=== PATIENT | male | born 1970 | race Caucasian/White ===

== ENCOUNTER → 2018-07-09 17:54 | Outpatient (CLI) | payer OTHER, SELFPAY ==
[2018-07-09 18:38] LABS: Amphetamine/Metha Screen,Urine Negative ng/mL (<1000); Barbiturates Screen,Urine Negative ng/mL (<200); Benzodiazepines Screen,Urine Negative ng/mL (<200); Cannabinoid Screen,Urine Positive ng/mL (<50); Cocaine Screen,Urine Negative ng/mL (<300); Methadone Screen,Urine Negative ng/mL (<300); Opiate Screen,Urine Positive ng/mL (<300); Phencyclidine Screen,Urine Negative ng/mL (<25)
[2018-07-09 18:51] LABS: Basophils # 0.1 K/mm3 (0-0.2); Eosinophils # 0.2 K/mm3 (0.0-0.4); Eosinophils % 1.7 % (0.1-12.0); Hematocrit 48.7 % (42.0-52.0); Lymphocytes # 3.3 K/mm3 (0.7-4.5); Lymphocytes % 34.8 % (10-50); Mean Corpuscular HGB Conc 34.8 g/dL (31.8-35.4); Mean Corpuscular Hemoglobin 32.9 pg (27.0-31.2); Mean Corpuscular Volume 94.7 fl (80-94); Mean Platelet Volume 8.1 fl (7.4-10.4); Monocytes # 0.4 K/mm3 (0.1-1.0); Monocytes % 4.8 % (1.7-9.3); Neutrophils # 5.4 K/mm3 (1.8-7.8); Neutrophils % 57.7 % (37.0-80.0); Platelet Count 160 K/mm3 (142-424); Red Blood Count 5.15 M/mm3 (4.60-6.20); Red Cell Distribution Width 13.4 % (11.5-17.5); White Blood Count 9.3 K/mm3 (4.8-10.8)
[2018-07-09 19:21] LABS: Alanine Aminotransferase 56 U/L (12-78); Albumin Level 4.5 gm/dL (3.4-5.0); Alkaline Phosphatase 119 U/L (46-116); Anion Gap 16.3 mEq/L (5-15); Aspartate Amino Transferase 31 U/L (15-37); Bilirubin,Total 0.8 mg/dL (0.2-1.0); Blood Urea Nitrogen 7 mg/dL (7-18); Calcium 9.6 mg/dL (8.5-10.1); Carbon Dioxide 27 mmol/L (21.0-32.0); Chloride 100 mmol/L (98-107); Chol/HDL Ratio 4.5 (1-3.5); Cholesterol 216 mg/dL (140-200); Creatinine,Serum 0.95 mg/dL (0.70-1.30); Estimated Glomerular Filt Rate 84 ml/min (>60); GFR (African American) 102 ML/MIN (>60); Globulin 4.3 gm/dl (1.3-3.2); Glucose 112 mg/dL (74-106); HDL Cholesterol 48 mg/dL (27-67); LDL Cholesterol 149 mg/dL (0-130); Potassium 4.3 mmoL/L (3.5-5.1); Sodium 139 mmol/L (136-145); T4 (Thyroxine) 10.7 ug/dl (4.7-13.3); Thyroid Stimulating Hormone 1.51 uIU/ml (0.358-3.740); Total Protein,Serum 8.8 gm/dL (6.4-8.2); Triglycerides 95 mg/dL (30-200); VLDL Cholesterol 19 mg/dL (0-40)
[2018-07-12 16:20] LABS: Vitamin D 25 Hydroxy 13.2 ng/mL (30.0-100.0)
[2018-07-12 22:12] LABS: Hep A Ab, IgM Negative (Negative); Hepatitis B Core Antibody IgM Negative (Negative); Hepatitis B Surface Antigen Negative (Negative)
[2018-07-13 06:08] LABS: Hepatitis C Antibody >11.0 s/co ratio (0.0-0.9)
== END ==
PROVIDERS: Visit Provider Nurse Practitioner Family
DX: M54.5 Low back pain (principal)
CPT/HCPCS: 80053; 80061; 80074; 80305; 82652; 84436; 84443; 85025

== ENCOUNTER → 2018-08-09 10:58 | Outpatient (POV) | payer OTHER, SELFPAY ==
[2018-08-09 11:20] VITALS: BP 175/108; PULSE 102; RESP 18; TEMP 36.8; O2SAT 96; BMI 24.3
--- NOTE | 2018-08-09 11:50 | [facility]H.PMCON ---
Assessment and Plan (1) Burst fracture of lumbar vertebra Current visit: Yes Status: Chronic Category: Medical Code(s): S32.001A - Stable burst fracture of unspecified lumbar vertebra, initial encounter for closed fracture (2) Sacroiliitis Current visit: Yes Status: Chronic Category: Medical Code(s): M46.1 - Sacroiliitis, not elsewhere classified - Assessment and plan all Dx Assessment and Plan for all problems:: I will give him information on SI joint injections. The person with the patient got continually agitated we were unable to continue with our appointment. I discussed with him if he is interested in SI joint injections we will schedule this. This note was dictated using voice recognition software and may contain errors or omissions HPI - Data of Consult Consult date: 08/09/18 Requesting Physician: Trina Hidalgo APRN Primary Care Provider: Britney Watson - Consult Narrative Reason for consult: Back pain History of present illness: Mr. Valente is a 48 year old male who presents today for consultation in regards to his back pain. Patient rates his pain about 8 out of 10. Patient has not had any injections. Patient has been on Percocet in the past however he is also been on Suboxone. Patient states he has had a history of abuse with prescription drugs. Patient is not a narcotic candidate. I discussed SI joint injections and epidural injections. The person with the patient is very vocal in her dislike of me suggesting things other than pain medication. CC: Trina Hidalgo APRN [facility] History I have reviewed the patient's past medical history: Yes Other Medical History: Reports: Other Laterality Cases: Bilateral: Tonsillectomy Other Surgeries: Yes: Appendectomy, Other (previous back surgeries) Amputation: No Fractures: Yes - *Social History Educational Level: Completed GED/General Educational Development Smoking Status: Current every day smoker Tobacco Type: cigarettes # Packs/Day (cigarettes): 1 Alcohol Intake: current Alcohol Intake Frequency:: other Substance Use Type: prescription drug Occupational Status: employed Housing: house - Psychiatric History Expresses thoughts of harming self/others: None Suicide Plan Description: No Plan *Family Hx:: No significant family history Review of Systems - Review of Systems ROS General: no recent weight change, no fever, no sleep disturbances Respiratory: no cough, no shortness of air, no recurring pulmonary infections Cardiovascular/Peripheral Vascular: No chest pain, No palpitations, no edema, no shortness of breath. Gastrointestinal: no incontinence, normal bowel movements reported Genitourinary: no incontinence Musculoskeletal: Back pain, SI joint pain Psychiatric: normal mood/ affect Neurological: [denies weakness in extremities], [denies balance issues] Meds Allergies Allergy/AdvReac Type Severity Reaction Status Date / Time No Known Allergies Allergy Verified 07/09/18 13:08 Objective Vital signs: Temp Pulse Resp BP Pulse Ox 98.3 F 102 H 18 175/108 H 96 08/09/18 11:20 08/09/18 11:20 08/09/18 11:20 08/09/18 11:20 08/09/18 11:20 Narrative: Physical Exam General: Alert and oriented x3, no acute distress, pleasant and cooperative, [on room air] Lungs: Resps E/U, Symmetrical chest expansion, Eyes: PERRL Musculoskeletal: Flexion and extension of lumbar spine somewhat guarded secondary to pain, deep tendon reflexes normal, strength in upper and lower extremities [5/5], slightly antalgic gait noted, positive Nadege's test bilaterally. Neurological: speech clear, business administrator equal, no gross sensory deficits Opioid Risk Tool - Opioid Risk Tool-Male Family hx alcohol abuse: N Family hx illegal drugs: N Family hx rx drug abuse: N Personal hx alcohol abuse: N Personal hx illegal drugs: N Personal hx rx drug abuse: Y Age: 45+ Hx of sexual abuse: N Mental health issues-ADD,O
--- NOTE | 2018-08-09 11:54 | P.CONS_ITS ---
Assessment and Plan (1) Burst fracture of lumbar vertebra Current visit: Yes Status: Chronic Category: Medical Code(s): S32.001A - Stable burst fracture of unspecified lumbar vertebra, initial encounter for closed fracture (2) Sacroiliitis Current visit: Yes Status: Chronic Category: Medical Code(s): M46.1 - Sacroiliitis, not elsewhere classified - Assessment and plan all Dx Assessment and Plan for all problems:: I will give him information on SI joint injections. The person with the patient got continually agitated we were unable to continue with our appointment. I discussed with him if he is interested in SI joint injections we will schedule this. This note was dictated using voice recognition software and may contain errors or omissions HPI - Data of Consult Consult date: 08/09/18 Requesting Physician: Trina Hidalgo APRN Primary Care Provider: Britney Watson - Consult Narrative Reason for consult: Back pain History of present illness: Mr. Valente is a 48 year old male who presents today for consultation in regards to his back pain. Patient rates his pain about 8 out of 10. Patient has not had any injections. Patient has been on Percocet in the past however he is also been on Suboxone. Patient states he has had a history of abuse with prescription drugs. Patient is not a narcotic candidate. I discussed SI joint injections and epidural injections. The person with the patient is very vocal in her dislike of me suggesting things other than pain medication. CC: Trina Hidalgo APRN [facility] History I have reviewed the patient's past medical history: Yes Other Medical History: Reports: Other Laterality Cases: Bilateral: Tonsillectomy Other Surgeries: Yes: Appendectomy, Other (previous back surgeries) Amputation: No Fractures: Yes - *Social History Educational Level: Completed GED/General Educational Development Smoking Status: Current every day smoker Tobacco Type: cigarettes # Packs/Day (cigarettes): 1 Alcohol Intake: current Alcohol Intake Frequency:: other Substance Use Type: prescription drug Occupational Status: employed Housing: house - Psychiatric History Expresses thoughts of harming self/others: None Suicide Plan Description: No Plan *Family Hx:: No significant family history Review of Systems - Review of Systems ROS General: no recent weight change, no fever, no sleep disturbances Respiratory: no cough, no shortness of air, no recurring pulmonary infections Cardiovascular/Peripheral Vascular: No chest pain, No palpitations, no edema, no shortness of breath. Gastrointestinal: no incontinence, normal bowel movements reported Genitourinary: no incontinence Musculoskeletal: Back pain, SI joint pain Psychiatric: normal mood/ affect Neurological: [denies weakness in extremities], [denies balance issues] Meds Allergies Allergy/AdvReac Type Severity Reaction Status Date / Time No Known Allergies Allergy Verified 07/09/18 13:08 Objective Vital signs: Temp Pulse Resp BP Pulse Ox 98.3 F 102 H 18 175/108 H 96 08/09/18 11:20 08/09/18 11:20 08/09/18 11:20 08/09/18 11:20 08/09/18 11:20 Narrative: Physical Exam General: Alert and oriented x3, no acute distress, pleasant and cooperative, [on room air] Lungs: Resps E/U, Symmetrical chest expansion,
== END ==
PROVIDERS: PCP Registered Nurse Psychiatric/Mental Health, Adult; Visit Provider Clinical Nurse Specialist Family Health
DX: S32.001A Stable burst fracture of unspecified lumbar vertebra, initial encounter for closed fracture (principal); M46.1 Sacroiliitis, not elsewhere classified
CPT/HCPCS: 99202